=== PATIENT | male | born 1985 | race Caucasian/White ===

== ENCOUNTER 2017-02-28 10:00 | Emergency (ER) | payer OTHER ==
[~2017-02-28] VITALS: Ht 177.8 cm; Wt 83.9 kg
[2017-02-28 10:05] VITALS: BP 117/82
--- NOTE | 2017-02-28 10:15 | ED ANKLE/FOOT INJURY COMPLAINT ---
History of Present Illness General Chief Complaint: Foot or Ankle Injury Stated Complaint: S/P ANKLE INJURY YE PAIN AND SWELLING Source: patient Exam Limitations: no limitations Vital Signs & Intake/Output Vital Signs & Intake/Output Vital Signs Date Time Temp Pulse Resp B/P Pulse O2 O2 Flow FiO2 Ox Delivery Rate 02/28 1005 98.1 81 20 117/82 98 Allergies Coded Allergies: No Known Allergies (02/28/17) Reconcile Medications Ibuprofen 800 MG TABLET 1 TAB PO Q8H PRN pain Oxycodone HCl/Acetaminophen (Percocet 5-325 MG Tablet) 5 MG-325 MG TABLET 1 TAB PO Q6H PRN PAIN Triage Note: PER PT HEARD A POP IN L ANKLE YESTERDAY WHILE PLAYING RUGBY. Triage Nurses Notes Reviewed? yes HPI: Patient is a 31-year-old male presents complaining of left ankle pain status post rugby injury yesterday. Patient reports that another player fell onto his left ankle and he felt a pop and heard a crack at that time. Pain and swelling have increased this morning. Patient taking ibuprofen with mild improvement. Pain is moderate at rest, severe with attempted ambulation. Patient denies previous injury to the area, numbness, head injury, neck pain, back pain. (SUZETTE TELLES) Past History Travel History Traveled to [place] past 21 day No Medical History Any Pertinent Medical History? see below for history Neurological: NONE EENT: NONE Cardiovascular: NONE Respiratory: NONE Gastrointestinal: NONE Hepatic: NONE Renal: NONE Musculoskeletal: infected bursitis right knee Psychiatric: NONE Endocrine: NONE Blood Disorders: NONE Surgical History Surgical History: knee bursa surgery Psychosocial History What is your primary language [place] Tobacco Use: Never used Family History Hx Contributory? No (SUZETTE TELLES) Review of Systems Review of Systems Constitutional: Reports: no symptoms. Cardiovascular: Denies: chest pain. GI: Denies: abdominal pain. Musculoskeletal: Reports: see HPI. Denies: back pain, neck pain. Neurological/Psychological: Reports: see HPI. Hematologic/Endocrine: Reports: no symptoms. Immunologic/Allergic: Reports: no symptoms. (SUZETTE TELLES) Physical Exam Physical Exam General Appearance: well developed/nourished, alert, awake Head: atraumatic, normal appearance Eyes: Bilateral: normal appearance. Ears, Nose, Throat: hearing grossly normal Neck: normal inspection, supple, full range of motion Back: normal inspection, normal range of motion Leg/Knee/Thigh Left: swelling and tenderness distal leg, no tenderness to the left knee or proximal tibia/fibula Ankle Left: diffuse swelling left ankle, tenderness lateral malleolus Foot Left: normal inspection, normal range of motion, nontender, dorsalis pedis pulse 2+ Neuro/Vascular: normal sensation, capillary refill <3 seconds Psychiatric: awake, alert, oriented x 3 Skin: intact, normal color, warm/dry (SUZETTE TELLES) Progress Differential Diagnosis: fracture, dislocation, sprain, contusion Plan of Care: Orders Procedure Date/time Status XRY-FOOT COMPLETE, LEFT 02/28 1007 Active XRY-ANKLE 3 OR MORE VIEWS L 02/28 1007 Active Patient declined pain medication on initial exam. Results of x-rays discussed with and shown to patient. A CD of the x-rays was provided to the patient so that he can follow-up with his orthopedist at [facility] early this week for further evaluation and management. Patient has his own crutches, advised nonweightbearing. (SUZETTE TELLES) Diagnostic Imaging: Viewed by Me: Radiology Read. Discussed w/RAD: Radiology Read. Radiology Impression: PATIENT: RYLAN REGALADO V PRESENT AGE: 31 PATIENT ACCOUNT NO: [id number] : 85 LOCATION: [facility] ORDERING PHYSICIAN: SUZETTE CUEVAS SERVICE DATE: 02/28/17 EXAM TYPE: RAD - XRY-ANKLE 3 OR MORE VIEWS L; XRY-FOOT COMPLETE, LEFT EXAMINATION: CR LEFT ANKLE. CR LEFT FOOT. CLINICAL INFORMATION: Ankle pain. Presumptive diagnosis of sprain. Patient states injured left ankle and foot during rugby game. Pain. COMPARISON: None TECHNIQUE: 3 views of the left ankle and 3 views of the left foot. FINDINGS: Left ankle: Prominent bimalleolar soft tissue swelling is seen. There is an oblique fracture of the distal fibular shaft with less than one cortex width of posterior displacement. No additional fracture is seen. Slight asymmetry of the ankle mortise is seen with the medial joint space measuring up to 0.8 cm in width. Small ankle joint effusion is seen. No radiopaque foreign body is noted. Bony structures otherwise unremarkable. Left foot: Prominent soft tissue swelling is seen about the ankle and over the dorsum of the proximal hindfoot. No acute fracture or dislocation of the foot is seen. No significant degenerative changes, soft tissue calcifications or radiopaque foreign bodies seen. IMPRESSION: 1. Distal left fibular minimally displaced fracture. 2. Asymmetrically widened medial joint space at the ankle mortise, raising the suspicion of ligamentous injury. Prominent associated soft tissue swelling about the left ankle and small left ankle joint effusion is seen. 3. No acute fracture of the left foot. DICTATED BY: NEGRITO SY MD DATE/TIME DICTATED:02/28/171037 FIREPROOF DOOR MAKER:EMANUEL DATE/TIME TRANSCRIBED:1037 CONFIDENTIAL, DO NOT COPY WITHOUT APPROPRIATE AUTHORIZATION. < Electronically signed in Other Vendor System> SIGNED BY: NEGRITO SY MD 02/28/17 1048 (SUZETTE TELLES) Departure Departure Time of Disposition: 1046 Disposition: HOME OR SELF CARE Condition: Stable Clinical Impression Primary Impression: Fracture of distal fibula Qualifiers: Encounter type: initial encounter Fracture type: closed Fracture morphology: unspecified fracture morphology Laterality: left Qualified Code: S82.832A - Other fracture of upper and lower end of left fibula, initial encounter for closed fracture Referrals: JODIE MARCUS DO (PCP/Family) Additional Instructions: Follow-up with your orthopedist at [facility] on Wednesday or Wednesday for further evaluation. Call in the morning for appointment. Bring the CD with the x-rays on it with you to the orthopedist. Wear the splint until you are seen by the orthopedic doctor. Elevate your leg as much as possible. Ibuprofen as directed for pain. Percocet as directed for breakthrough pain that is not controlled with the ibuprofen. Return to the emergency department if pain uncontrollable, numbness, or worsening of symptoms. Departure Forms: Customer Survey General Discharge Information Prescriptions: Current Visit Scripts Oxycodone HCl/Acetaminophen (Percocet 5-325 MG Tablet) 1 TAB PO Q6H PRN PAIN #10 TAB Ibuprofen 1 TAB PO Q8H PRN pain #30 TAB (SUZETTE TELLES) PA/EMERGENCY MEDICAL TECHNICIAN Co-Sign Statement Statement: ED Attending supervision documentation- [] I saw and evaluated the patient. I have also reviewed all the pertinent lab results and diagnostic results. I agree with the findings and the plan of care as documented in the PA's/EMERGENCY MEDICAL TECHNICIAN's documentation. [X] I have reviewed the ED Record and agree with the PA's/EMERGENCY MEDICAL TECHNICIAN's documentation. [] Additions or exceptions (if any) to the PAs/EMERGENCY MEDICAL TECHNICIAN's note and plan are summarized below: [] (COURTNEY TAMEZ,SOPHIA Valenzuela) Procedures Splinting Location: left lower extremity Hand-Made Type: orthoglass Splint: stirrup and posterior splint Splint Applied By: splint applied by me Pre-Proc Neuro Vasc Exam: normal Post-Proc Neuro Vasc Exam: normal (SUZETTE TELLES)
--- NOTE | 2017-02-28 10:48 | RADIOLOGY REPORT ---
EXAMINATION: CR LEFT ANKLE. CR LEFT FOOT. CLINICAL INFORMATION: Ankle pain. Presumptive diagnosis of sprain. Patient states injured left ankle and foot during rugby game. Pain. COMPARISON: None TECHNIQUE: 3 views of the left ankle and 3 views of the left foot. FINDINGS: Left ankle: Prominent bimalleolar soft tissue swelling is seen. There is an oblique fracture of the distal fibular shaft with less than one cortex width of posterior displacement. No additional fracture is seen. Slight asymmetry of the ankle mortise is seen with the medial joint space measuring up to 0.8 cm in width. Small ankle joint effusion is seen. No radiopaque foreign body is noted. Bony structures otherwise unremarkable. Left foot: Prominent soft tissue swelling is seen about the ankle and over the dorsum of the proximal hindfoot. No acute fracture or dislocation of the foot is seen. No significant degenerative changes, soft tissue calcifications or radiopaque foreign bodies seen. IMPRESSION: 1. Distal left fibular minimally displaced fracture. 2. Asymmetrically widened medial joint space at the ankle mortise, raising the suspicion of ligamentous injury. Prominent associated soft tissue swelling about the left ankle and small left ankle joint effusion is seen. 3. No acute fracture of the left foot.
[2017-02-28] MEDS ORDERED: PERCOCET 5-3251 EACH PO (10:49)
[2017-02-28] MEDS ORDERED: IBUPROFEN800 M1 PO (10:49)
== END 2017-02-28 11:07 ==
LOC: ERH 10:00
DX: S82.402A Unspecified fracture of shaft of left fibula, initial encounter for closed fracture (principal); W03.XXXA Other fall on same level due to collision with another person, initial encounter; Y93.63 Activity, rugby; Y92.9 Unspecified place or not applicable
CPT/HCPCS: 73610-LT; 73630-LT